=== PATIENT | female | born 1975 | race Caucasian/White ===

== ENCOUNTER → 2019-08-27 | Outpatient (CLI) | payer OTHER ==
--- NOTE | 2019-08-27 13:02 | KCIC ---
MR of the right elbow HISTORY: Right elbow fracture after an injury on August 24, 2019. Posterolateral pain. TECHNIQUE: Routine multiplanar sequences are obtained. COMPARISON: None are available. FINDINGS: The biceps and brachialis tendons are intact. Triceps tendon is intact. Minimal soft tissue edema or contusion posterior to the triceps tendon insertion. Common flexor tendon and ulnar collateral ligament are intact. The common extensor tendon is thickened and heterogeneous with some internal fluid signal compatible with intrasubstance degeneration/tearing. This intrasubstance fluid signal measures about 8 x 4 x 4 mm. No surface rupture or retraction. No evidence of rupture of the lateral collateral ligament complex. No evidence of acute fracture. No aggressive bone destruction. No significant joint effusion. Mild degenerative changes are identified at the elbow. Subchondral cysts at the coronoid process of the ulna. No abnormal soft tissue edema or fluid collection. The ulnar nerve appears unremarkable. IMPRESSION: Common extensor tendinosis with intrasubstance degeneration/tearing. Electronically signed by: Sachin Shin MD (08/27/2019 12:59 PM) [id number]
== END ==
LOC: KCIC MRI 11:43
PROVIDERS: ATTEND Nurse Practitioner Family
DX: S42.401A Unspecified fracture of lower end of right humerus, initial encounter for closed fracture (principal); M77.9 Enthesopathy, unspecified; X58.XXXA Exposure to other specified factors, initial encounter; Y93.89 Activity, other specified; Y92.89 Other specified places as the place of occurrence of the external cause; Y99.8 Other external cause status
CPT/HCPCS: 73221

== ENCOUNTER → 2020-11-11 | Outpatient (CLI) | payer OTHER ==
--- NOTE | 2020-11-11 16:42 | KCIC ---
EXAM: Lumbar spine, 5 views. HISTORY: Pain. COMPARISON: None. FINDINGS: 5 views of the lumbar spine are obtained. There is a transitional lumbosacral segment, cons idered S1 with rudimentary S1-S2 disc for this dictation. There is mild lumbar hyperlordosis. There i s no significant listhesis. The vertebral powers are normal in height. IMPRESSION: No acute osseous finding. Electronically signed by: Josy Bean MD (11/11/2020 4:40 PM) [id number]
--- NOTE | 2020-11-11 16:43 | KCIC ---
EXAM: Pelvis and right hip, 3 views. HISTORY: Pain. COMPARISON: None. FINDINGS: A frontal view of the pelvis and 2 views of the right hip are obtained. There is no fractur e, dislocation or subluxation. There is a small right os acetabulum. There is a transitional lumbosac ral segment, a normal variant. IMPRESSION: No acute osseous finding. Electronically signed by: Josy Bean MD (11/11/2020 4:41 PM) [id number]
== END ==
LOC: KCIC 15:29
PROVIDERS: ATTEND Physician Assistant Medical
DX: M54.5 Low back pain (principal); M25.551 Pain in right hip; Q76.49 Other congenital malformations of spine, not associated with scoliosis
CPT/HCPCS: 72110; 73502